=== PATIENT | male | born 1980 ===

== ENCOUNTER 2018-03-15 10:59 | Outpatient (CLI) | payer BC, SELFPAY ==
[2018-03-18 09:30] LABS: HBs Antibody, Quant >1000.0 mIU/mL; Hepatitis B Surface Ab Positive
[2018-03-18 11:02] LABS: Hepatitis C Ab w Rflx HCV PCR Negative (NEGAT)
[2018-03-18 11:33] LABS: Syphilis Serology (RPR) Negative (Negative)
== END 2018-03-15 11:19 ==
PROVIDERS: Visit Provider Nurse Practitioner Adult Health
DX: Z11.3 Encounter for screening for infections with a predominantly sexual mode of transmission (principal); Z01.84 Encounter for antibody response examination
CPT/HCPCS: 36415; 86706; 86803; 86592